=== PATIENT | male | born 1945 | race Hispanic/Latino ===

== ENCOUNTER → 2018-03-20 | Outpatient (CLI) | payer MEDICARE ==
--- NOTE | 2018-03-20 14:47 | Diagnostic Imaging Report ---
PROCEDURE:X-RAY RIGHT ANKLE, COMPLETE INDICATION:Cellulitis, his ankle COMPARISON:None. FINDINGS: No acute displaced fracture or dislocation. The tibial plafond and talar dome are intact. The ankle mortise is maintained. Healed fracture deformity of the base of the fifth metatarsal. Degenerative plantar and posterior calcaneal spur. Atherosclerotic vascular calcifications. CONCLUSION: No acute osseous abnormality. Dictated by: Danyel Beasley M.D. on 03/20/2018 at 14:52 Electronically approved by: Danyel Beasley M.D. on 03/20/2018 at 14:52
--- NOTE | 2018-03-20 15:04 | Diagnostic Imaging Report ---
PROCEDURE:X-RAY RIGHT FOOT, COMPLETE COMPARISON:Ankle radiographs same day. INDICATIONS:CELLULITIS, ULCER FINDINGS: No acute, displaced fracture or dislocation. Interpret alignment between the medial cuneiform and second metatarsal base. Remote fracture deformity of the base of the fifth metatarsal. No gross soft tissue defect, radiopaque foreign body, or cortical erosive-destructive change is appreciated. Atherosclerotic vascular calcifications. CONCLUSION: No acute osseous abnormality. Dictated by: Danyel Beasley M.D. on 03/20/2018 at 15:09 Electronically approved by: Danyel Beasley M.D. on 03/20/2018 at 15:09
== END ==
LOC: RAD 12:22
PROVIDERS: ATTEND Family Medicine
DX: L03.115 Cellulitis of right lower limb (principal); L97.519 Non-pressure chronic ulcer of other part of right foot with unspecified severity

== ENCOUNTER → 2018-08-27 | Outpatient (CLI) | payer MEDICARE ==
--- NOTE | 2018-08-28 08:02 | Diagnostic Imaging Report ---
Exam: AP standing knee History: Knee pain Comparison: None. Findings: No fracture or malalignment. Tibiofemoral osteophytosis bilaterally with joint space narrowing in the medial tibiofemoral compartment on the right. No abnormal soft tissue calcification or soft tissue defect. Impression: No acute osseous abnormality Tibiofemoral degenerative arthrosis, greatest involving the right medial compartment. Signed by: Dr. Carson Hewitt M.D. on 08/28/2018 7:59 AM
== END ==
LOC: RAD 15:34
PROVIDERS: ATTEND Family Medicine
DX: M17.0 Bilateral primary osteoarthritis of knee (principal)

== ENCOUNTER → 2019-02-26 | Outpatient (CLI) | payer MEDICARE ==
--- NOTE | 2019-02-26 10:03 | Diagnostic Imaging Report ---
EXAM: Right upper quadrant abdominal ultrasound INDICATION: Right upper quadrant pain COMPARISON: None. TECHNIQUE: Transverse and longitudinal images of the right upper quadrant abdomen were obtained FINDINGS: Liver: Size: 13.3 cm in the right midclavicular line, normal Appearance: Increased echogenicity, smooth contour Mass: No focal masses Gallbladder: Small amount of sludge in the nondistended gallbladder. No pericholecystic fluid, wall thickening, stone, or reported sonographic Tolentino's sign. Gallbladder wall measures 0.2 cm. Bile Ducts: Intrahepatic Ducts: No dilatation Extrahepatic Ducts: Common bile duct measures 0.4cm, no dilatation Pancreas: Visualized portions of the pancreatic head, neck and proximal body are normal. Kidney: The right kidney measures 11.7 cm without evidence of hydronephrosis or stone. Vessels: Aorta: Not visualized due to overlying bowel gas. Inferior Vena Cava: Not visualized due to overlying bowel gas. Main Portal Vein: 1.2 cm, normal size with hepatopetal flow. Free Fluid: No ascites or pleural effusion IMPRESSION: Small amount of sludge in the nondistended gallbladder. No sonographic evidence of cholecystitis. Signed by: Nic Kapoor MD on 02/26/2019 9:59 AM
== END ==
LOC: US 07:31
PROVIDERS: ATTEND Family Medicine
DX: R10.10 Upper abdominal pain, unspecified (principal)
CPT/HCPCS: 76705

== ENCOUNTER → 2019-03-04 | Outpatient (CLI) | payer MEDICARE ==
--- NOTE | 2019-03-04 17:30 | Diagnostic Imaging Report ---
Hepatobiliary Scan with Gallbladder Ejection Fraction Clinical information RUQ abdominal pain x 2 months Technique: Following intravenous administration of 7.0 millicuries of Tc-99m mebrofenin, dynamic images of the abdomen in the anterior projection were obtained through 30 minutes. Sincalide (CCK analog) 2.0 micrograms was administered intravenously over 30 minutes with additional imaging for determination of gallbladder ejection fraction. Discussion: Perfusion of the liver is normal. Extraction of tracer by the liver parenchyma is normal. Tracer appears promptly within the biliary tract. The gallbladder begins to fill by 15 minutes post injection of tracer and fills adequately. Tracer is seen in the small bowel during the sincalide infusion. The gallbladder ejection fraction with sincalide is 3% (normal greater than 40%). Impression: 1. Filling of the gallbladder excludes acute cystic duct obstruction/acute cholecystitis. 2. The decreased gallbladder ejection fraction of 3% supports the clinical diagnosis of chronic cholecystitis/gallbladder dyskinesia. Signed by: Dr. Kenna Braxton M.D. on 03/04/2019 5:27 PM
== END ==
LOC: NM 09:04
PROVIDERS: ATTEND Family Medicine
DX: R10.11 Right upper quadrant pain (principal)
CPT/HCPCS: 78227; A9537

== ENCOUNTER → 2019-07-22 | Outpatient (CLI) | payer MEDICARE ==
[~2019-07-22] MED LIST: IOPAMIDOL 370 MG/ML 200 ML INFUS..BTL INJ ONE; SODIUM CHLORIDE 0.9% 500ML 500 ML ONE; SODIUM CHLORIDE 0.9% 50ML 50 ML ONE
[2019-07-22 13:29] LABS: CREATININE, SERUM 1.7 mg/dL (0.72-1.25)
--- NOTE | 2019-07-22 16:20 | Diagnostic Imaging Report ---
CT of the abdomen and pelvis History: Generalized abdominal pain Comparison: None available. Technique: Multidetector CT scanning of the abdomen and pelvis was performed from the level of the lung bases to the inferior pubic ramus, with IV contrast DOSE REDUCTION: The examination was performed according to departmental dose-optimization program which includes automated exposure control, adjustment of the mA and/or kV according to patient size and/or use of iterative reconstruction technique. Discussion: The lung bases are clear. The no focal hepatic lesions are identified. The gallbladder is surgically absent. There is no intrahepatic or extrahepatic biliary dilatation. The spleen is enlarged measuring 18 cm in craniocaudal dimension. There is calcification of the right adrenal gland which may be the sequelae of prior adrenal hemorrhage. The left adrenal gland is unremarkable. The pancreas is normal in attenuation. There is no pancreatic ductal dilatation or peripancreatic inflammatory stranding. The kidneys are normal in size. There is no hydroureteronephrosis bilaterally. No kidney stones are identified. A 2.0 cm cyst arises from the left lower pole. The stomach, small, and large bowel are nondistended. There is no evidence of obstruction. No bowel wall thickening is identified. The appendix is normal. There is no free intraperitoneal air or ascites. The abdominal aorta is of normal course and caliber and demonstrates moderate atherosclerotic calcifications. No enlarged abdominal or pelvic lymph nodes are identified. The urinary bladder is within normal limits. The prostate is enlarged measuring 5.5 cm in diameter. There are no acute osseous abnormalities. IMPRESSION: 1. Mild splenomegaly. The spleen measures 18 cm in craniocaudal dimension. 2. 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 3. Status post cholecystectomy. 4. Enlarged prostate. Signed by: Boston Diaz MD on 07/22/2019 4:16 PM
== END ==
LOC: CT 12:35
PROVIDERS: ATTEND Family Medicine
DX: R10.84 Generalized abdominal pain (principal); I80.02 Phlebitis and thrombophlebitis of superficial vessels of left lower extremity; I80.01 Phlebitis and thrombophlebitis of superficial vessels of right lower extremity; I73.9 Peripheral vascular disease, unspecified
CPT/HCPCS: 36415; 74177; 82565; 84520; 93925; 93970; 96360; J7040; Q9967

== ENCOUNTER → 2020-07-07 | Outpatient (CLI) | payer MEDICARE | LOC: US 14:10 | PROVIDERS: ATTEND Family Medicine | DX: N18.30 Chronic kidney disease, stage 3 unspecified (principal) | CPT/HCPCS: 76770 ==

== ENCOUNTER → 2020-08-03 | Outpatient (CLI) | payer MEDICARE | LOC: CT 13:41 | PROVIDERS: ATTEND Family Medicine | DX: R16.1 Splenomegaly, not elsewhere classified (principal) | CPT/HCPCS: 74176 ==

== ENCOUNTER → 2022-02-15 | Outpatient (CLI) | payer MEDICARE | LOC: CARD 08:53 | PROVIDERS: ATTEND Family Medicine | DX: I70.25 Atherosclerosis of native arteries of other extremities with ulceration (principal); I87.2 Venous insufficiency (chronic) (peripheral) | CPT/HCPCS: 93925 ==